=== PATIENT | male | born 1990 | race Caucasian/White ===

== ENCOUNTER 2018-06-21 16:32 | Emergency (ER) | payer OTHER ==
[~2018-06-21] VITALS: Ht 180.3 cm; Wt 106.8 kg
[2018-06-21] MEDS ORDERED: HM I200C PO (16:39)
[2018-06-21] MEDS ORDERED: OMEP40CA2 PO (16:40)
[2018-06-21] MEDS ORDERED: CLINDAMYCIN 150 MG CAP PO ONE (18:00)
[2018-06-21] MEDS ORDERED: CLIN150C14 PO (18:41)
[2018-06-21] MEDS ORDERED: MAGICMW SSP (18:41)
[2018-06-21 18:46] VITALS: BP 140/88
== END 2018-06-21 18:47 | disposition home or self-care (01) ==
LOC: M ED 16:32
DX: K04.7 Periapical abscess without sinus (principal); Z79.899 Other long term (current) drug therapy

== ENCOUNTER → 2018-08-17 | Outpatient (CLI) | payer OTHER ==
[~2018-08-17] MED LIST: CLIN150C14 PO; CONRAY-43 43% 50ML VIAL (Q9960) As Ordered ONE; HM I200C PO; MAGICMW SSP; OMEP40CA2 PO; PROHANCE 279.3MG/ML 5ML VIAL (A9576) As Ordered ONE
--- NOTE | 2018-08-17 11:27 | REP ---
MR ARTHROGRAM RIGHT HIP: HISTORY: Right hip pain . COMPARISON STUDIES: No comparison imaging. TECHNIQUE: Precontrast imaging includes coronal T1 and T2-weighted scans of both hips. Postcontrast small field of view high resolution axial, coronal and sagittal images are acquired in T1 and T2-weighted scans with fat saturation. 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 This measures 4.9 x 2.8 cm on coronal images. 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 They are associated with other genitourinary anomalies. Today's fur sewer image shows bilateral kidneys. Cortical and medullary bone signal intensity are normal in the proximal femurs and in the visualized bony pelvic ring on initial images. There is no evidence to suggest avascular necrosis. No significant hip joint effusion is seen. There is no evidence of bursal fluid collection or periarticular cyst or mass on either side. Head/neck junction morphology is felt to be normal. Postinjection imaging shows good filling and enhancement of the right hip articulation. There is no evidence of acetabular labral tear. The ligamentum teres appears intact. There is no evidence of loose body. Hamstring and other tendon insertion sites are unremarkable. 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 These may be associated with other urogenital congenital abnormalities. Otherwise normal MR arthrography right hip. Electronically Signed by Lex Louis MD 08/17/2018 06:16 P
--- NOTE | 2018-08-17 18:20 | REP ---
Reason For Exam/Comment: Chronic hip pain Procedure: Right hip MRI arthrogram The procedure was performed by ANGELY Hanks, under the direct supervision of Dr. Louis. The benefits and risks including but not limited to pain, infection, bleeding and anaphylaxis were explained to the patient and informed consent was obtained both verbally and written. Directly prior to the start of the procedure, a formal timeout was completed in the procedure room. Technique: The right femoral neck was localized using fluoroscopic guidance. The skin was prepped and draped in the usual sterile fashion. 5 mL of 1% lidocaine was used as a local anesthetic. Using fluoroscopic guidance a 22-gauge spinal needle was inserted and advanced to the right femoral neck joint space. 3 mL of Conray 43 was injected to verify needle placement. 12 mL of a solution containing 20 ml of sterile saline and a 0.15 ml of ProHance was injected into the joint. The needle was removed and the patient was taken MRI for post procedural imaging. The patient tolerated the procedure well and there were no immediate complications. 0.2 minutes of fluoroscopy time was utilized for this procedure. Reviewed by ANGELY Reynaga 08/17/2018 09:56 A Electronically Signed by Lex Louis MD 08/17/2018 06:11 P
== END ==
LOC: M RADPRO 06:27
PROVIDERS: ATTEND Physician Assistant
DX: M25.551 Pain in right hip (principal)
CPT/HCPCS: 27093; 73723; 77002; A9576; Q9960